=== PATIENT | female | born 1960 | race Caucasian/White ===

== ENCOUNTER 2018-12-28 20:48 | Emergency (ER) | payer OTHER ==
[~2018-12-28] VITALS: Ht 170 cm; Wt 104.3 kg
== END 2018-12-29 00:03 | disposition home or self-care (01) ==
LOC: ED 20:48
DX: S01.112A Laceration without foreign body of left eyelid and periocular area, initial encounter (principal); M25.512 Pain in left shoulder; R07.81 Pleurodynia; M79.642 Pain in left hand; M54.2 Cervicalgia; Z88.7 Allergy status to serum and vaccine; W18.09XA Striking against other object with subsequent fall, initial encounter; Y93.89 Activity, other specified; Y92.89 Other specified places as the place of occurrence of the external cause; Y99.8 Other external cause status

== ENCOUNTER → 2019-01-09 | Outpatient (CLI) | payer OTHER ==
[2019-01-09 08:59] LABS: HEMATOCRIT 42.6 % (37.0-47.0); HEMOGLOBIN 13.4 g/dl (12.0-16.0); MEAN CELL VOLUME 91.6 fl (81.0-99.0); MEAN CORPUSCULAR HGB 28.8 pg (27.0-31.0); MEAN CORPUSCULAR HGB CONC 31.5 g/dl (33.0-37.0); MEAN PLATELET VOLUME 11.5 fl (9.6-12.3); RED BLOOD COUNT 4.65 10*6/uL (4.10-5.10); RED CELL DISTRI WIDTH 14.2 % (0-14.5); WHITE BLOOD COUNT 6.4 10*3/uL (4.8-10.8)
[2019-01-09 09:14] LABS: ALBUMIN 3.2 gm/dl (3.1-4.5); BUN 10 mg/dl (7-24); CHLORIDE 108 mmol/L (98-107); CHOLESTEROL 120 mg/dL (<200); CREATININE 1.02 mg/dL (0.55-1.02); POTASSIUM 3.8 mmol/L (3.5-5.1); SGOT/AST 10 IU/L (3-35); SGPT/ALT 16 U/L (12-78); SODIUM 143 mmol/L (136-145); TRIGLYCERIDES 72 mg/dl (<150); VLDL CHOLESTEROL 14 mg/dL (6-40)
[2019-01-09 09:16] LABS: ALKALINE PHOSPHATASE 68 U/L (45-117); HDL CHOLESTEROL 50 mg/dl (40-60); LDL CHOLESTEROL 56 mg/dL (9-159); TOTAL PROTEIN 7.7 gm/dL (6.4-8.2)
== END | disposition home or self-care (01) ==
LOC: LAB 07:49
PROVIDERS: Family Medicine
DX: F41.1 Generalized anxiety disorder (principal); E74.00 Glycogen storage disease, unspecified; E78.00 Pure hypercholesterolemia, unspecified; E55.9 Vitamin D deficiency, unspecified; K29.60 Other gastritis without bleeding; J32.9 Chronic sinusitis, unspecified

== ENCOUNTER → 2020-06-20 | Outpatient (CLI) | payer OTHER | END | disposition home or self-care (01) | LOC: COVID19 03:13 | PROVIDERS: ATTEND Family Medicine | DX: Z20.828 Contact with and (suspected) exposure to other viral communicable diseases (principal) ==

== ENCOUNTER → 2021-04-23 | Outpatient (CLI) | payer OTHER ==
[2021-04-23 08:44] LABS: ALBUMIN 3.4 gm/dl (3.1-4.5); ALKALINE PHOSPHATASE 62 U/L (45-117); BUN 12 mg/dl (7-24); CHLORIDE 110 mmol/L (98-107); CREATININE 0.95 mg/dL (0.55-1.02); SGOT/AST 13 IU/L (3-35); SGPT/ALT 20 U/L (12-78); SODIUM 142 mmol/L (136-145); TOTAL PROTEIN 7.6 gm/dL (6.4-8.2)
== END | disposition home or self-care (01) ==
LOC: LAB 08:11 → CT 09:00
PROVIDERS: ATTEND Family Medicine
DX: R51.9 Headache, unspecified (principal); W19.XXXA Unspecified fall, initial encounter; Y93.89 Activity, other specified; Y92.89 Other specified places as the place of occurrence of the external cause; Y99.8 Other external cause status

== ENCOUNTER → 2023-11-26 | Outpatient (CLI) | payer OTHER | LOC: RAD 08:48 | PROVIDERS: ATTEND Chiropractor | DX: M47.817 Spondylosis without myelopathy or radiculopathy, lumbosacral region (principal); M48.07 Spinal stenosis, lumbosacral region; G95.89 Other specified diseases of spinal cord; M51.37 Other intervertebral disc degeneration, lumbosacral region; M54.50 Low back pain, unspecified; M25.551 Pain in right hip; M25.552 Pain in left hip ==

== ENCOUNTER → 2024-10-06 | Emergency (ER) | payer OTHER ==
[~2024-10-06] VITALS: Ht 167.6 cm; Wt 113.4 kg
[~2024-10-06] MED LIST: CLEOCIN HCL300 MG PO; CLINDAMYCIN HCL 300 MG CAPSULE PO ONE; CLINDAMYCIN PHO60 M2 PO; NAPROSYN500 MG PO
== END ==
LOC: ED 09:25
DX: K04.7 Periapical abscess without sinus (principal); F17.210 Nicotine dependence, cigarettes, uncomplicated; Z88.0 Allergy status to penicillin; Z88.2 Allergy status to sulfonamides; Z88.7 Allergy status to serum and vaccine

== ENCOUNTER 2024-11-20 14:44 | Emergency (ER) | payer OTHER ==
[~2024-11-20 14:44] MED LIST changes: -CLINDAMYCIN HCL 300 MG CAPSULE PO ONE
[2024-11-20] MEDS ORDERED: CLINDAMYCI75 MG/5 M1 PO (15:41)
[2024-11-20] MEDS ORDERED: TRAMADOL HCL50 MG PO (15:42)
[2024-11-20] MEDS ORDERED: cefTRIAXone Sodium 1 GM/10 ML SYR IV ONE (16:40)
== END 2024-11-20 18:04 | disposition home or self-care (01) ==
LOC: ED 14:44
DX: K04.7 Periapical abscess without sinus (principal); Z88.2 Allergy status to sulfonamides; Z88.0 Allergy status to penicillin; Z88.7 Allergy status to serum and vaccine; Z79.2 Long term (current) use of antibiotics

== ENCOUNTER 2024-11-21 08:01 | Emergency (ER) | payer OTHER ==
[~2024-11-21] VITALS: Ht 165.1 cm; Wt 113.4 kg
[~2024-11-21 08:01] MED LIST changes: +CLINDAMYCI75 MG/5 M1 PO; +TRAMADOL HCL50 MG PO
[2024-11-21] MEDS ORDERED: Acetaminophen/Oxycodone 5 MG/325 MG TABLET PO ONE (08:35)
== END 2024-11-21 08:56 | disposition home or self-care (01) ==
LOC: ED 08:01
DX: K04.7 Periapical abscess without sinus (principal); Z79.899 Other long term (current) drug therapy; Z88.0 Allergy status to penicillin; Z88.2 Allergy status to sulfonamides; Z88.7 Allergy status to serum and vaccine